=== PATIENT | female | born 1950 | race Caucasian/White ===

== ENCOUNTER 2017-02-22 06:31 | Inpatient (IN) | payer OTHER ==
[~2017-02-22] VITALS: Ht 162.6 cm; Wt 83.5 kg
[~2017-02-22 06:31] MED LIST: AMLODIPINE BESYL5 M1 PO; ATENOLOL50 MG PO; COZAAR50 MG PO; HYDROCHLOROTH12.5 M2 PO; LEVOTHYROXINE0.1 M2 PO; METFORMIN ER500 M1 PO; SIMVASTATIN20 M1 PO
[2017-02-22] MEDS ORDERED: ALPRAZOLAM0.25 MG PO (07:21)
[2017-02-22 07:22] LABS: BASOPHIL % 0.6 % (0-2); PLATELET COUNT 283 x10^3mcL (130-400); RED CELL DISTRIBUTION WIDTH 14.3 % (11.5-14.5)
[2017-02-22] MEDS ORDERED: XARELTO10 M1 PO (07:23)
[2017-02-22] MEDS ORDERED: NOR10 PO (07:24)
[2017-02-22 07:37] LABS: ALBUMIN 3.8 g/dL (3.4-5.0); ALKALINE PHOSPHATASE 85 U/L (46-116); ALT/SGPT 24 U/L (14-59); AST/SGOT 15 U/L (15-37); BILIRUBIN TOTAL 0.6 mg/dL (0.20-1.00); CALCIUM 8.7 mg/dL (8.5-10.1); CHLORIDE SERUM 103 mmol/L (98-107); CREATININE SERUM 0.8 mg/dL (0.6-1.0); GFR1 > 60 mL/min; GLUCOSE SERUM 164 mg/dL (74-106); HDL CHOLESTEROL 59 mg/dL (40-60); LIPASE 140 IU/L (73-393); SODIUM SERUM 143 mmol/L (136-145); TOTAL PROTEIN, SERUM 7.9 g/dL (6.4-8.2); TRIGLYCERIDES 199 mg/dL (<150)
[2017-02-22 07:45] LABS: POTASSIUM SERUM 2.7 mmol/L (3.5-5.1)
[2017-02-22 07:46] LABS: CHOLESTEROL 207 mg/dL (<200); CHOLESTEROL/HDL RATIO 3.5
[2017-02-22 07:48] LABS: FREE T4 1.15 ng/dL (0.76-1.46); T4(THYROXINE) 11.3 ug/dL (4.7-13.3)
[2017-02-22 07:58] LABS: T3 TOTAL 1.02 ng/mL
[2017-02-22 08:29] LABS: microscopic required? YES; urine erythrocyte TRACE (NEGATIVE)
[2017-02-22 12:23] LABS: MAGNESIUM 2.3 mg/dL (1.8-2.4); PHOSPHOROUS 3.6 mg/dL (2.5-4.9)
[2017-02-22 14:12] VITALS: BP 118/66
[2017-02-22 16:05] LABS: CALCIUM 8.2 mg/dL (8.5-10.1); CARBON DIOXIDE 29.4 mmol/L (21-32); CHLORIDE SERUM 109 mmol/L (98-107); CREATININE SERUM 0.8 mg/dL (0.6-1.0); GFR1 > 60 mL/min; GLUCOSE SERUM 144 mg/dL (74-106); POTASSIUM SERUM 3.6 mmol/L (3.5-5.1); SODIUM SERUM 146 mmol/L (136-145)
[2017-02-22 16:35] VITALS: BP 124/80
[2017-02-22 21:42] VITALS: BP 100/59
[2017-02-22 22:14] LABS: AMPHETAMINE QUAL UR NONE DETECTED (NEG <=1000)
[2017-02-23 05:17] VITALS: BP 125/59
[2017-02-23 06:04] LABS: CALCIUM 8.1 mg/dL (8.5-10.1); CARBON DIOXIDE 25.5 mmol/L (21-32); CHLORIDE SERUM 110 mmol/L (98-107); CREATININE SERUM 0.7 mg/dL (0.6-1.0); GFR1 > 60 mL/min; GLUCOSE SERUM 123 mg/dL (74-106); POTASSIUM SERUM 3.5 mmol/L (3.5-5.1); SODIUM SERUM 144 mmol/L (136-145)
[2017-02-23 06:28] LABS: BASOPHIL % 0.5 % (0-2); PLATELET COUNT 250 x10^3mcL (130-400); RED CELL DISTRIBUTION WIDTH 14.5 % (11.5-14.5)
[2017-02-23 09:05] VITALS: BP 95/55
[2017-02-23 13:49] VITALS: BP 111/53
[2017-02-23 17:00] VITALS: BP 118/72
[2017-02-23 21:02] VITALS: BP 91/58
[2017-02-23 22:09] VITALS: BP 120/65
[2017-02-24 05:53] VITALS: BP 129/71
[2017-02-24 06:17] LABS: BASOPHIL % 0.6 % (0-2); PLATELET COUNT 249 x10^3mcL (130-400)
[2017-02-24 06:18] LABS: RED CELL DISTRIBUTION WIDTH 14.7 % (11.5-14.5)
[2017-02-24 06:19] LABS: CARBON DIOXIDE 25.9 mmol/L (21-32); CHLORIDE SERUM 109 mmol/L (98-107); CREATININE SERUM 0.7 mg/dL (0.6-1.0); GFR1 > 60 mL/min; GLUCOSE SERUM 119 mg/dL (74-106); POTASSIUM SERUM 3.1 mmol/L (3.5-5.1); SODIUM SERUM 144 mmol/L (136-145)
[2017-02-24 09:07] VITALS: BP 107/76
[2017-02-24 13:21] VITALS: BP 115/79
[2017-02-24 17:41] VITALS: BP 114/70
[2017-02-24 21:17] VITALS: BP 119/76
[2017-02-25 05:26] VITALS: BP 117/71
[2017-02-25 06:29] LABS: CALCIUM 8.4 mg/dL (8.5-10.1); CARBON DIOXIDE 26.6 mmol/L (21-32); CHLORIDE SERUM 109 mmol/L (98-107); CREATININE SERUM 0.7 mg/dL (0.6-1.0); GFR1 > 60 mL/min; GLUCOSE SERUM 116 mg/dL (74-106); POTASSIUM SERUM 3.3 mmol/L (3.5-5.1); SODIUM SERUM 143 mmol/L (136-145)
[2017-02-25 08:42] VITALS: BP 121/78
[2017-02-25 14:20] VITALS: BP 119/82
[2017-02-25 17:49] VITALS: BP 114/63
[2017-02-25 21:34] VITALS: BP 118/62
[2017-02-26 05:29] VITALS: BP 124/55
[2017-02-26 09:21] VITALS: BP 129/63
[2017-02-26 13:41] VITALS: BP 139/69
[2017-02-26] MEDS ORDERED: LOP50 PO (16:00)
[2017-02-26 16:16] VITALS: BP 139/69
== END 2017-02-26 17:16 | disposition home or self-care (01) | DRG 308 ==
LOC: ED 06:31 → DU 10:08 → IC 10:08 → DU 12:13
PROVIDERS: Family Medicine; Specialist; ADMIT Family Medicine
DX: I48.0 Paroxysmal atrial fibrillation (principal); N17.0 Acute kidney failure with tubular necrosis; D68.69 Other thrombophilia; E87.0 Hyperosmolality and hypernatremia; E87.6 Hypokalemia; E11.9 Type 2 diabetes mellitus without complications; E78.00 Pure hypercholesterolemia, unspecified; E02 Subclinical iodine-deficiency hypothyroidism; I51.7 Cardiomegaly; E78.5 Hyperlipidemia, unspecified; Z79.01 Long term (current) use of anticoagulants; Z79.899 Other long term (current) drug therapy; Z90.49 Acquired absence of other specified parts of digestive tract; Z98.51 Tubal ligation status; Z68.31 Body mass index [BMI] 31.0-31.9, adult
CPT/HCPCS: 82962; 83880; 84439; J2405; J3475; J3480; J3490; J7030; Q0092

== ENCOUNTER 2019-03-25 03:08 | Inpatient (IN) | payer OTHER ==
[~2019-03-25] VITALS: Ht 162.6 cm; Wt 84.4 kg
[~2019-03-25 03:08] MED LIST changes: +ALPRAZOLAM0.25 MG PO; +LOP50 PO; +NOR10 PO; +XARELTO10 M1 PO
[2019-03-25 03:16] VITALS: Ht 162.6 cm; Wt 84.4 kg
[2019-03-25 04:23] LABS: CALCIUM 8.7 mg/dL (8.5-10.1); CARBON DIOXIDE 27.5 mmol/L (21-32); CHLORIDE SERUM 104 mmol/L (98-107); CREATININE SERUM 0.8 mg/dL (0.6-1.0); GFR1 > 60 mL/min; GLUCOSE SERUM 153 mg/dL (74-106); POTASSIUM SERUM 3.3 mmol/L (3.5-5.1); SODIUM SERUM 144 mmol/L (136-145)
[2019-03-25 04:24] LABS: BASOPHIL % 0.6 % (0-2); PLATELET COUNT 254 x10^3mcL (130-400); RED CELL DISTRIBUTION WIDTH 13.9 % (11.5-14.5)
[2019-03-25] MEDS ORDERED: SIMVASTATIN40 M1 PO (06:20)
[2019-03-25] MEDS ORDERED: TOPROL XL25 MG PO (06:20)
[2019-03-25] MEDS ORDERED: NOR10 PO (06:21)
[2019-03-25] MEDS ORDERED: XARELTO10 M1 PO (06:21)
[2019-03-25] MEDS ORDERED: LOSARTAN POTASS50 M1 PO (06:22)
[2019-03-25 10:22] VITALS: BP 101/72
[2019-03-25 20:00] VITALS: BP 111/71
[2019-03-25 21:00] VITALS: BP 105/78
[2019-03-25 22:00] VITALS: BP 114/63
[2019-03-26] VITALS (9 sets, daily range): BP systolic 92–126; BP diastolic 52–68
[2019-03-26 07:13] LABS: BASOPHIL % 0.9 % (0-2); PLATELET COUNT 280 x10^3mcL (130-400)
[2019-03-26 07:19] LABS: CALCIUM 8.7 mg/dL (8.5-10.1); CARBON DIOXIDE 24.4 mmol/L (21-32); CHLORIDE SERUM 107 mmol/L (98-107); CREATININE SERUM 0.8 mg/dL (0.6-1.0); GFR1 > 60 mL/min; GLUCOSE SERUM 149 mg/dL (74-106); POTASSIUM SERUM 3.7 mmol/L (3.5-5.1); SODIUM SERUM 142 mmol/L (136-145)
== END 2019-03-26 18:32 | disposition home or self-care (01) | DRG 310 ==
LOC: ED 03:08 → IC 06:37
PROVIDERS: Emergency Medicine; Internal Medicine Pulmonary Disease; ADMIT Internal Medicine
DX: I48.0 Paroxysmal atrial fibrillation (principal); I10 Essential (primary) hypertension; E87.6 Hypokalemia; I11.9 Hypertensive heart disease without heart failure; I25.10 Atherosclerotic heart disease of native coronary artery without angina pectoris; I34.0 Nonrheumatic mitral (valve) insufficiency; E11.9 Type 2 diabetes mellitus without complications; I36.1 Nonrheumatic tricuspid (valve) insufficiency; E03.9 Hypothyroidism, unspecified; E78.5 Hyperlipidemia, unspecified; Z68.32 Body mass index [BMI] 32.0-32.9, adult; Z79.84 Long term (current) use of oral hypoglycemic drugs; Z79.01 Long term (current) use of anticoagulants
CPT/HCPCS: 82962; 83880; G0378; J1160; J3490; J7030; Q0092